=== PATIENT | female | born 1955 | race Caucasian/White ===

== ENCOUNTER → 2022-06-30 | Outpatient (REF) | payer MEDICARE, SELFPAY ==
[2022-06-30 08:21] LABS: Hematocrit 41.5 % (37-47); Hemoglobin 13.7 g/dL (12.0-15.0); Platelet Count 205 K/mm3 (150-450); RBC Distribution Width CV 12.6 % (11.6-14.6); RBC Distribution Width SD 44.7 fl (35.1-43.9); Red Blood Count 4.28 M/mm3 (4.2-5.4); White Blood Count 5.2 K/mm3 (4.4-11.0)
[2022-06-30 08:32] LABS: ALB/GLOB Ratio 1.1 RATIO (0.9-2.4); AST(SGOT) 14 U/L (15-37); Alanine Aminotransfer ALT/SGPT 24 U/L (13-56); Albumin, Serum 2.9 g/dL (3.2-5.0); Alkaline Phosphatase 64 U/L (45-117); Anion Gap 5 (5-15); BUN 17 mg/dL (7-18); BUN/Creat Ratio 24.2 RATIO (10-20); Calcium,Total 8.2 mg/dL (8.5-10.1); Chloride 113 mmol/L (98-107); EST Glomerular Filtration Rate 88 mL/min (>60); Est Glom Filt Rate - Afr Amer 107 mL/min (>60); Globulin 2.7 g/dL (2.2-4.2); Glucose 96 mg/dL (74-106); Potassium 3.9 mmol/L (3.5-5.1); Protein, Total 5.6 g/dL (6.4-8.2); Sodium Level 144 mmol/L (136-145)
[2022-06-30 08:53] LABS: Hemoglobin A1c 5.2 % (3.8-5.6)
== END ==
PROVIDERS: Referring Provider Family Medicine; Visit Provider Family Medicine
DX: E11.9 Type 2 diabetes mellitus without complications (principal); I10 Essential (primary) hypertension
CPT/HCPCS: 36415; 80053; 83036; 85027

== ENCOUNTER → 2022-07-11 | Outpatient (REF) | payer MEDICARE, SELFPAY ==
[2022-07-11 09:05] LABS: Hematocrit 42.2 % (37-47); Hemoglobin 13.9 g/dL (12.0-15.0); Mean Corp Hgb Conc 32.9 g/dL (32-36); Mean Corpuscular Hgb 31.7 pg (27.0-32.0); Mean Corpuscular Volume 96.3 fL (81-99); Platelet Count 194 K/mm3 (150-450); RBC Distribution Width CV 12.1 % (11.6-14.6); RBC Distribution Width SD 43.6 fl (35.1-43.9); Red Blood Count 4.38 M/mm3 (4.2-5.4); White Blood Count 4.6 K/mm3 (4.4-11.0)
[2022-07-11 09:23] LABS: Valproic Acid (Depakene) Level 29 ug/mL (50-100)
[2022-07-11 09:35] LABS: ALB/GLOB Ratio 0.9 RATIO (0.9-2.4); AST(SGOT) 12 U/L (15-37); Alanine Aminotransfer ALT/SGPT 23 U/L (13-56); Albumin, Serum 2.8 g/dL (3.2-5.0); Alkaline Phosphatase 77 U/L (45-117); Anion Gap 4 (5-15); BUN 17 mg/dL (7-18); Calcium,Total 8.5 mg/dL (8.5-10.1); Chloride 110 mmol/L (98-107); Creatinine, Serum 0.74 mg/dL (0.55-1.02); EST Glomerular Filtration Rate 83 mL/min (>60); Est Glom Filt Rate - Afr Amer 101 mL/min (>60); Glucose 98 mg/dL (74-106); Potassium 4.2 mmol/L (3.5-5.1); Protein, Total 5.8 g/dL (6.4-8.2); Sodium Level 142 mmol/L (136-145)
== END ==
DX: F39 Unspecified mood [affective] disorder (principal); F41.9 Anxiety disorder, unspecified; G93.1 Anoxic brain damage, not elsewhere classified; I10 Essential (primary) hypertension
CPT/HCPCS: 36415; 80053; 80164; 85027

== ENCOUNTER → 2022-10-30 | Outpatient (REF) | payer MEDICARE, SELFPAY ==
[2022-10-30 09:11] LABS: Hematocrit 40.9 % (37-47); Hemoglobin 13.4 g/dL (12.0-15.0); Mean Corp Hgb Conc 32.8 g/dL (32-36); Mean Corpuscular Hgb 31.8 pg (27.0-32.0); Mean Corpuscular Volume 97.1 fL (81-99); Mean Platelet Vol. 10.2 fl (6.2-12.0); Platelet Count 171 K/mm3 (150-450); RBC Distribution Width CV 12.6 % (11.6-14.6); RBC Distribution Width SD 45.2 fl (35.1-43.9); Red Blood Count 4.21 M/mm3 (4.2-5.4); White Blood Count 3.8 K/mm3 (4.4-11.0)
[2022-10-30 09:22] LABS: Valproic Acid (Depakene) Level 48 ug/mL (50-100)
[2022-10-30 09:29] LABS: ALB/GLOB Ratio 1.1 RATIO (0.9-2.4); AST(SGOT) 6 U/L (15-37); Alanine Aminotransfer ALT/SGPT 17 U/L (13-56); Albumin, Serum 2.9 g/dL (3.2-5.0); Alkaline Phosphatase 56 U/L (45-117); Anion Gap 6 (5-15); BUN 24 mg/dL (7-18); BUN/Creat Ratio 37.7 RATIO (10-20); Calcium,Total 8.4 mg/dL (8.5-10.1); Chloride 110 mmol/L (98-107); Creatinine, Serum 0.64 mg/dL (0.55-1.02); EST Glomerular Filtration Rate 99 mL/min (>60); Est Glom Filt Rate - Afr Amer 119 mL/min (>60); Globulin 2.7 g/dL (2.2-4.2); Glucose 92 mg/dL (74-106); Protein, Total 5.6 g/dL (6.4-8.2); Sodium Level 143 mmol/L (136-145)
== END ==
DX: F39 Unspecified mood [affective] disorder (principal); Z79.899 Other long term (current) drug therapy
CPT/HCPCS: 36415; 80053; 80164; 85027

== ENCOUNTER → 2022-12-30 | Outpatient (REF) | payer MEDICARE, SELFPAY ==
[2022-12-30 08:14] LABS: Hematocrit 42.3 % (37-47); Hemoglobin 13.8 g/dL (12.0-15.0); Mean Corp Hgb Conc 32.6 g/dL (32-36); Mean Corpuscular Hgb 32.8 pg (27.0-32.0); Mean Corpuscular Volume 100.5 fL (81-99); Mean Platelet Vol. 9.9 fl (6.2-12.0); Platelet Count 191 K/mm3 (150-450); RBC Distribution Width CV 12.6 % (11.6-14.6); RBC Distribution Width SD 46.8 fl (35.1-43.9); Red Blood Count 4.21 M/mm3 (4.2-5.4); White Blood Count 4.6 K/mm3 (4.4-11.0)
[2022-12-30 08:45] LABS: AST(SGOT) 8 U/L (15-37); Alanine Aminotransfer ALT/SGPT 14 U/L (13-56); Albumin, Serum 2.7 g/dL (3.2-5.0); Alkaline Phosphatase 57 U/L (45-117); Anion Gap 7 (5-15); BUN 28 mg/dL (7-18); BUN/Creat Ratio 41.5 RATIO (10-20); Calcium,Total 8.7 mg/dL (8.5-10.1); Chloride 112 mmol/L (98-107); Creatinine, Serum 0.67 mg/dL (0.55-1.02); EST Glomerular Filtration Rate 92 mL/min (>60); Est Glom Filt Rate - Afr Amer 112 mL/min (>60); Globulin 2.7 g/dL (2.2-4.2); Glucose 89 mg/dL (74-106); Protein, Total 5.4 g/dL (6.4-8.2); Sodium Level 146 mmol/L (136-145)
== END ==
PROVIDERS: Visit Provider Family Medicine
DX: G93.1 Anoxic brain damage, not elsewhere classified (principal); E11.9 Type 2 diabetes mellitus without complications; I10 Essential (primary) hypertension; Z79.899 Other long term (current) drug therapy
CPT/HCPCS: 36415; 80053; 83036; 85027

== ENCOUNTER → 2023-06-30 | Outpatient (REF) | payer MEDICARE, MEDICAID, SELFPAY ==
[2023-06-30 08:19] LABS: Hematocrit 41.4 % (37-47); Hemoglobin 13.4 g/dL (12.0-15.0); Mean Corp Hgb Conc 32.4 g/dL (32-36); Mean Corpuscular Hgb 32.2 pg (27.0-32.0); Mean Corpuscular Volume 99.5 fL (81-99); Mean Platelet Vol. 10.4 fl (6.2-12.0); Platelet Count 170 K/mm3 (150-450); RBC Distribution Width CV 12.5 % (11.6-14.6); RBC Distribution Width SD 45.8 fl (35.1-43.9); Red Blood Count 4.16 M/mm3 (4.2-5.4); White Blood Count 4.2 K/mm3 (4.4-11.0)
[2023-06-30 08:33] LABS: ALB/GLOB Ratio 0.9 RATIO (0.9-2.4); AST(SGOT) 8 U/L (15-37); Alanine Aminotransfer ALT/SGPT 15 U/L (13-56); Albumin, Serum 2.5 g/dL (3.2-5.0); Alkaline Phosphatase 52 U/L (45-117); Anion Gap 4 (5-15); BUN 18 mg/dL (7-18); BUN/Creat Ratio 27.8 RATIO (10-20); Calcium,Total 8.3 mg/dL (8.5-10.1); Chloride 111 mmol/L (98-107); Creatinine, Serum 0.65 mg/dL (0.55-1.02); EST Glomerular Filtration Rate 97 mL/min (>60); Est Glom Filt Rate - Afr Amer 117 mL/min (>60); Globulin 2.7 g/dL (2.2-4.2); Glucose 95 mg/dL (74-106); Potassium 4.1 mmol/L (3.5-5.1); Protein, Total 5.2 g/dL (6.4-8.2); Sodium Level 143 mmol/L (136-145)
== END ==
PROVIDERS: Visit Provider Family Medicine
DX: I10 Essential (primary) hypertension (principal); G93.1 Anoxic brain damage, not elsewhere classified; E11.9 Type 2 diabetes mellitus without complications
CPT/HCPCS: 36415; 80053; 83036; 85027

== ENCOUNTER → 2023-08-10 | Outpatient (REF) | payer MEDICARE, MEDICAID, SELFPAY ==
[2023-08-10 08:35] LABS: Hematocrit 41.6 % (37-47); Hemoglobin 13.6 g/dL (12.0-15.0); Mean Corp Hgb Conc 32.7 g/dL (32-36); Mean Corpuscular Hgb 32.3 pg (27.0-32.0); Mean Corpuscular Volume 98.8 fL (81-99); Mean Platelet Vol. 10.1 fl (6.2-12.0); Platelet Count 177 K/mm3 (150-450); RBC Distribution Width CV 12.7 % (11.6-14.6); RBC Distribution Width SD 45.8 fl (35.1-43.9); Red Blood Count 4.21 M/mm3 (4.2-5.4)
[2023-08-10 08:58] LABS: Valproic Acid (Depakene) Level 49 ug/mL (50-100)
== END ==
PROVIDERS: Visit Provider Family Medicine
DX: Z79.899 Other long term (current) drug therapy (principal)
CPT/HCPCS: 36415; 80164; 85027; 85049

== ENCOUNTER 2023-11-10 19:38 | Emergency (ER) | payer MEDICARE, SELFPAY ==
[2023-11-10 19:39] VITALS: BP 155/91; PULSE 77; RESP 16; TEMP 36.3; O2SAT 97
--- NOTE | 2023-11-10 22:19 | EDS_ITS ---
HPI History of Present Illness Chief Complaint: Complaint Informant: family Onset/Context/Timing Onset: Today Context: Sudden Onset Timing: Continuous Quality: Red blood Location: Urine Worsened by: Nothing Relieved by: Nothing Narrative Narrative: Patient presents with hematuria that began today. long-term staff noted some red blood in her urine today. Patient lives in extended-care facility and is incontinent usually. long-term staff noted some blood in her diaper today. Family denies any fevers or chills. Family denies any nausea or vomiting. Family states patient does have a history of prior urinary tract infections. Patient is a poor informant. [facility] Medical History (Updated 11/11/23 @ 01:[address] Sidney Quezada, DO) TBI (traumatic brain injury) Home Medications cephalexin 500 mg capsule 500 mg PO Q6 #20 CAPSULES 11/11/23 [Rx Last Taken Unknown] Social History Smoking Status: Unknown if ever smoked ROS ROS ED Review of Systems ROS Unobtainable: due to mental condition Constitutional Constitutional ED: Denies chills or fever(s) Respiratory/Chest Respiratory/Chest: Denies cough or dyspnea Gastrointestinal Gastrointestinal: Denies nausea or vomiting Genitourinary Genitourinary ED: Reports hematuria Integumentary Denies rash Allergic/Immunologic Allergic/Immunologic ED: Denies urticaria EXAM Physical Exam Const Vital Signs: 11/10/23 19:39 11/10/23 23:23 Temperature 97.4 F L 96.3 F L Temperature Source Temporal Axillary Pulse Rate 77 70 Respiratory Rate 16 16 Blood Pressure 155/91 H 159/88 H Blood Pressure Mean 112 111 Pulse Ox 97 91 Oxygen Delivery Method Room Air Positive well nourished and well developed General Appearance ED: well developed and NAD HEENT Reports moist mucous membranes Neck supple and no JVD Resp normal respiratory effort and clear to auscultation bilaterally Cardio regular rate and regular rhythm GI non-tender and non-distended Palpation: soft Neuro CN's II-XII intact bilaterally Sensorium / Orientation: alert Skin no rashes or lesions noted MDM MDM MDM Narrative Medical decision making narrative: Differential diagnosis includes urinary tract infection, pelvic mass, bladder mass, coagulopathy, anemia, and kidney injury. CBC will be obtained to assess for leukocytosis and anemia. Basic metabolic profile will be obtained to assess for electrolyte abnormality and renal function. Urinalysis will be obtained to assess for urinary tract infection and hematuria. CT scan of the abdomen pelvis will be obtained to assess for ureteral calculus, bladder mass and pelvic mass. Lab Data Attestation: I reviewed the patient's lab results. Lab results narrative: CBC was reviewed and was within normal limits. Basic metabolic profile was reviewed. BUN was slightly elevated at 30. Creatinine was normal. Remainder is within normal limits. Urinalysis was reviewed. There were 50-100 red blood cells and 5-10 white blood cells seen. Occult blood was 250. Labs: Laboratory Results - last 24 hr 11/10/23 11/10/23 22:50 22:55 WBC 8.5 RBC 4.66 Hgb 14.6 Hct 44.7 MCV 95.9 MCH 31.3 MCHC 32.7 RDW Std Deviation 43.8 RDW Coeff of Ronna 12.4 Plt Count 181 MPV 9.5 Immature Gran % (Auto) 0.400 Neut % (Auto) 60.8 Lymph % (Auto) 26.8 Shannon % (Auto) 10.2 H Eos % (Auto) 1.3 Baso % (Auto) 0.5 Absolute Neuts (auto) 5.2 Absolute Lymphs (auto) 2.28 Nucleated RBC % 0 Sodium 144 Potassium 4.0 Chloride 112 H Carbon Dioxide 28.0 Anion Gap 4 L BUN 30 H Creatinine 0.74 Est GFR (MDRD) Af Amer 99 Est GFR (MDRD) Non-Af 82 BUN/Creatinine Ratio 40.3 H Glucose 113 H Calcium 8.7 Urine Color Red Urine Clarity Cloudy Urine pH 5.0 Ur Specific [place] 1.020 Urine Protein 500 H Urine Glucose (UA) Normal Urine Ketones 5 H Urine Occult Blood 250 H Urine Nitrite Negative Urine Bilirubin Negative Urine Urobilinogen Normal Ur Leukocyte Esterase Negative Urine RBC 50-100 SEEN Urine WBC 5-10 SEEN Ur Squamous Epith Cells 0 SEEN Urine Bacteria 0 SEEN Urine Mucus 0 SEEN Radiography Diagnostic Testing: Clinical Impression(s) from Imaging Studies Abdomen/Pelvis CT 11/10/23 22:26 IMPRESSION: 1. 4 mm calyceal calculus at the posterior aspect of the left kidney, nonobstructing. 2. Possible cystitis. Correlate with urinalysis. Electronically Signed: Ariel Beltran MD at 0:51 EST , CT scan of the abdomen pelvis was obtained. There is evidence of cystitis. There is also a 4 mm calculus in the posterior aspect of the left kidney which is nonobstructing. There is no other abnormality noted. There are no masses noted. This was interpreted by the radiologist and was also independently reviewed by myself. Treatment and Re-Evaluation :: Patient and family were advised of the findings. Patient was given a dose of Rocephin here. Patient will be given a prescription for Keflex. Patient will be instructed to follow-up with her primary care physician in 3 to 5 days. Patient will be discharged back to extended-care facility. Patient and family understood and were agreeable with the plan. All questions were answered. Discharge Plan Triage Chief Complaint: Complaint ED Provider: Sidney Quezada Dx/Rx/DC Orders Clinical Impression: Urinary tract infection, Hemorrhagic cystitis Instructions: ED Cystitis Female Adult Prescriptions: New cephalexin [cephalexin] 500 mg capsule 500 mg PO Q6 Qty: 20 0RF Primary Care Provider: Saray Espinosa Referrals: Saray Espinosa MD [Primary Care Provider] - 3-5 Days Disposition Disposition: Home, Self Care
--- NOTE | 2023-11-10 22:26 | CT_ITS ---
EXAM: CT ABDOMEN AND PELVIS WITHOUT INTRAVENOUS CONTRAST CLINICAL INDICATION: Pain TECHNIQUE: Helically acquired images were obtained of the abdomen and pelvis without intravenous contrast. CTDIvol = ( 16.58 ) mGy, DLP = ( 824.19 ) mGycm This CT exam was performed using one or more of the following dose reduction techniques: automated exposure control, adjustment of the mA and/or kV according to patient size, and/or use of iterative reconstruction technique. COMPARISON: No relevant prior studies available. FINDINGS: LOWER THORAX: Moderate pericardial effusion. Small left pleural effusion with adjacent passive atelectasis. ABDOMEN: LIVER: Unremarkable. Homogeneous. GALLBLADDER AND BILE DUCTS: Unremarkable. No calcified gallstones. No gallbladder distention or wall edema. No intra- or extrahepatic biliary ductal dilation. PANCREAS: Unremarkable. No focal cystic mass. SPLEEN: Unremarkable. Normal size without focal cystic or solid mass. ADRENALS: Unremarkable. No nodules. KIDNEYS AND URETERS: 4 mm calyceal calculus at the posterior aspect of the left kidney, nonobstructing. Question presence of small renal sinus region cysts bilaterally. Normal renal size and position. STOMACH AND BOWEL: Right inguinal hernia containing small amount of fluid density. No bowel herniation. No stomach or bowel distention. No focal inflammatory change. PELVIS: APPENDIX: No evidence of acute appendicitis. BLADDER: Decompressed bladder with adjacent stranding. REPRODUCTIVE: Unremarkable as visualized. No mass. ABDOMEN and PELVIS: INTRAPERITONEAL SPACE: Unremarkable. No ascites or other fluid collection. No free air. BONES/JOINTS: Degenerative changes of the thoracolumbar spine. No suspicious lytic or blastic abnormality. SOFT TISSUES: See above. VASCULATURE: Unremarkable. Abdominal aorta is non-dilated. LYMPH NODES: Unremarkable. No enlarged lymph nodes. CT/Abdomen/Pelvis without Cont IMPRESSION: 1. 4 mm calyceal calculus at the posterior aspect of the left kidney, nonobstructing. 2. Possible cystitis. Correlate with urinalysis. Electronically Signed: Ariel Beltran MD at 0:51 EST ,
[2023-11-10 22:57] LABS: Bacteria 0 SEEN /hpf (None Seen); Mucous, Urine 0 SEEN /hpf (<or=2+); Squamous Epithelial Cells - UA 0 SEEN /hpf (5-10)
[2023-11-10 22:59] LABS: Absolute Lymphocyte Count 2.28 X10^3/uL (0.83-4.51); Absolute Neutrophil Count 5.2 X10^3/uL (2.0-7.7); Basophil# 0.04 X10^3/uL; Basophil% 0.5 % (0-1); Eosinophil# 0.11 X10^3/uL; Eosinophils% 1.3 % (0-5); Hematocrit 44.7 % (37-47); Hemoglobin 14.6 g/dL (12.0-15.0); Lymphocyte # 2.28 X10^3/ul (0.83-4.51); Lymphocyte % 26.8 % (19-41); Mean Corp Hgb Conc 32.7 g/dL (32-36); Mean Corpuscular Hgb 31.3 pg (27.0-32.0); Mean Corpuscular Volume 95.9 fL (81-99); Mean Platelet Vol. 9.5 fl (6.2-12.0); Monocyte# 0.87 X10^3/uL; Monocyte% 10.2 % (0-10); NRBC Flagged by Analyzer 0 % (0-5); Neutrophil # 5.19 X10^3/uL (2.7-7.7); Neutrophil % 60.8 % (47-70); Platelet Count 181 K/mm3 (150-450); RBC Distribution Width CV 12.4 % (11.6-14.6); RBC Distribution Width SD 43.8 fl (35.1-43.9); Red Blood Count 4.66 M/mm3 (4.2-5.4); White Blood Count 8.5 K/mm3 (4.4-11.0)
[2023-11-10 23:04] LABS: Color, Urine Red (Yellow); Glucose, Dipstick Normal (Normal); Ketone-Dipstick 5 mg/dl (Negative); Leukocyte Esterase-Dipstick Negative /ul (Negative); Nitrite-Dipstick Negative (Negative); Occult Blood-Urine 250 /ul (Negative); Protein-Dipstick 500 mg/dl (Negative); Urine Bilirubin Dipstick Negative (Negative); Urine Clarity Cloudy (Clear); Urine Urobilinogen Normal (Normal)
[2023-11-10 23:14] LABS: Anion Gap 4 (5-15); BUN 30 mg/dL (7-18); BUN/Creat Ratio 40.3 RATIO (10-20); Calcium,Total 8.7 mg/dL (8.5-10.1); Chloride 112 mmol/L (98-107); Creatinine, Serum 0.74 mg/dL (0.55-1.02); EST Glomerular Filtration Rate 82 mL/min (>60); Est Glom Filt Rate - Afr Amer 99 mL/min (>60); Glucose 113 mg/dL (74-106); Sodium Level 144 mmol/L (136-145)
[2023-11-10 23:23] VITALS: BP 159/88; PULSE 70; RESP 16; TEMP 35.7; O2SAT 91
[2023-11-10 23:56] LABS: Red Blood Cells-Urine 50-100 SEEN /hpf (0-5); White Blood Cells 5-10 SEEN /hpf (0-5)
[2023-11-11] MEDS: Ceftriaxone 1 GM/50 ML BAG IV (01:34)
[2023-11-11 01:38] VITALS: PULSE 75; RESP 17; O2SAT 97
--- OUTSIDE RECORDS SUMMARY | 2023-11-11 21:33 | XMS RPT_ITS | CCD ---
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 Name Role Phone TABET, SAE Unavailable Unavailable MICHELLE RENNER Unavailable Unavailable PHYSICIAN, NONE Unavailable Unavailable REFERRING, PHY WO ID Unavailable Unavailable ALHATEM, JEFF Unavailable Unavailable PHYSICIAN, NONE Unavailable Unavailable REFERRING, PHY WO ID Unavailable Unavailable PHYSICIAN, NONE Unavailable Unavailable Problems Problem Classification Problem Date Documented Da te Episodic/Chronic Intracranial injury (1 source) 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 Unclassified (1 source) Unknown / UNK(Unknown) Onset: 05-25-2017 Results Test Name Value Interpretation Reference Range Facil ity Encounters Encounter Date Encounter Type Care Provider Facility Start: 05-25-2017 Ambulatory SAE TABET Facili ty:[facility] [place] Start: 05-22-2017 Ambulatory PHY WO ID REFERRING Fac ility:[facility] Payers Date Payer Category Payer Medicaid [id number] Summary Purpose Family History No Family History Records FoundNo Family History Records Found Advance Directives No Advanced Directives Records FoundNo Advanced Directives Records Found Additional Source Comments INFORMATION SOURCE (unrecogn ized section and content) DATE CREATED AUTHOR AUTHOR'S ORGANIZ ATION 12/14/2020 [facility] ([place]) FOR RECORDS PERTAINING TO PATIENTS WHO ARE OR HAVE BEEN ENROLLED IN A CHEMICAL DEPENDENCY/SUBSTANCEABUSE PROGRAM, SOME INFORMATION MAY BE OMITTED. This clinical summary was aggregated from multiple sources. Caution should be exercised in using it in the provision of clinical care. This summary normalizes information from multiple sources, and as a consequence, information in this document may materially change the coding, format and clinical context of patient data. In addition, data may be omitted in some cases. CLINICAL DECISIONS SHOULD BE BASED ON THE PRIMARY CLINICAL RECORDS. [facility]. provides no warranty or guarantee of the accuracy or completeness of information in this document.
== END 2023-11-11 02:33 | disposition home or self-care (01) ==
PROVIDERS: Emergency Provider Emergency Medicine; PCP Family Medicine; Visit Provider Emergency Medicine
DX: N30.90 Cystitis, unspecified without hematuria (principal); R31.9 Hematuria, unspecified; N20.0 Calculus of kidney
CPT/HCPCS: 74176; 80048; 81001; 85025; 87086; 87088; 96365; 99284; J7050; P9612; A4216

== ENCOUNTER → 2023-12-29 | Outpatient (REF) | payer MEDICARE, MEDICAID, SELFPAY ==
--- OUTSIDE RECORDS SUMMARY | 2023-12-29 05:26 | XMS RPT_ITS | CCD ---
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 Name Role Phone TABET, SAE Unavailable Unavailable [...] Facility Start: 05-25-2017 Ambulatory SAE TABET Facili ty:[facility] Start: 05-22-2017 Ambulatory PHY WO ID REFERRING Fac ility:[facility] Payers Date Payer Category Payer Medicaid [id number] Summary Purpose Family History No Family History Records FoundNo Family History Records Found Advance Directives No Advanced Directives Records FoundNo Advanced Directives Records Found Additional Source Comments INFORMATION SOURCE (unrecogn ized section and content) DATE CREATED AUTHOR AUTHOR'S ORGANIZ ATION 12/14/2020 [facility] ([place]) FOR RECORDS PERTAINING TO [...] BE BASED ON THE PRIMARY CLINICAL RECORDS. [employer] [facility]. provides no warranty or guarantee of the accuracy or completeness of information in this document.
[2023-12-29 09:17] LABS: Absolute Lymphocyte Count 2.46 X10^3/uL (0.83-4.51); Basophil# 0.05 X10^3/uL; Eosinophil# 0.18 X10^3/uL; Eosinophils% 3.4 % (0-5); Hematocrit 41.5 % (37-47); Hemoglobin 13.5 g/dL (12.0-15.0); Lymphocyte # 2.46 X10^3/ul (0.83-4.51); Lymphocyte % 47.1 % (19-41); Mean Corp Hgb Conc 32.5 g/dL (32-36); Mean Corpuscular Hgb 31.3 pg (27.0-32.0); Mean Corpuscular Volume 96.3 fL (81-99); Mean Platelet Vol. 9.8 fl (6.2-12.0); Monocyte# 0.54 X10^3/uL; Monocyte% 10.3 % (0-10); NRBC Flagged by Analyzer 0 % (0-5); Neutrophil # 1.96 X10^3/uL (2.7-7.7); Neutrophil % 37.6 % (47-70); Platelet Count 181 K/mm3 (150-450); RBC Distribution Width CV 12.6 % (11.6-14.6); RBC Distribution Width SD 45.1 fl (35.1-43.9); Red Blood Count 4.31 M/mm3 (4.2-5.4); White Blood Count 5.2 K/mm3 (4.4-11.0)
[2023-12-29 10:07] LABS: AST(SGOT) 10 U/L (15-37); Alanine Aminotransfer ALT/SGPT 12 U/L (13-56); Albumin, Serum 2.7 g/dL (3.2-5.0); Alkaline Phosphatase 50 U/L (45-117); Anion Gap 6 (5-15); BUN 24 mg/dL (7-18); BUN/Creat Ratio 33.3 RATIO (10-20); Calcium,Total 8.5 mg/dL (8.5-10.1); Chloride 114 mmol/L (98-107); Creatinine, Serum 0.72 mg/dL (0.55-1.02); EST Glomerular Filtration Rate 85 mL/min (>60); Est Glom Filt Rate - Afr Amer 103 mL/min (>60); Globulin 2.6 g/dL (2.2-4.2); Glucose 94 mg/dL (74-106); Potassium 3.9 mmol/L (3.5-5.1); Protein, Total 5.3 g/dL (6.4-8.2); Sodium Level 146 mmol/L (136-145)
== END ==
PROVIDERS: PCP Family Medicine; Visit Provider Family Medicine
DX: E11.9 Type 2 diabetes mellitus without complications (principal); G93.1 Anoxic brain damage, not elsewhere classified; I10 Essential (primary) hypertension; Z79.899 Other long term (current) drug therapy
CPT/HCPCS: 36415; 80053; 83036; 85025

== ENCOUNTER → 2024-01-11 | Outpatient (REF) | payer MEDICARE, MEDICAID, SELFPAY ==
[2024-01-11 09:14] LABS: Hematocrit 41.1 % (37-47); Hemoglobin 13.5 g/dL (12.0-15.0); Mean Corp Hgb Conc 32.8 g/dL (32-36); Mean Corpuscular Hgb 31.8 pg (27.0-32.0); Mean Corpuscular Volume 96.9 fL (81-99); Mean Platelet Vol. 10.1 fl (6.2-12.0); Platelet Count 180 K/mm3 (150-450); RBC Distribution Width SD 46.5 fl (35.1-43.9); Red Blood Count 4.24 M/mm3 (4.2-5.4); White Blood Count 5.2 K/mm3 (4.4-11.0)
[2024-01-11 09:51] LABS: Valproic Acid (Depakene) Level 54 ug/mL (50-100)
[2024-01-11 10:21] LABS: AST(SGOT) 9 U/L (15-37); Alanine Aminotransfer ALT/SGPT 12 U/L (13-56); Albumin, Serum 2.7 g/dL (3.2-5.0); Alkaline Phosphatase 56 U/L (45-117); Anion Gap 4 (5-15); BUN 20 mg/dL (7-18); BUN/Creat Ratio 34.4 RATIO (10-20); Calcium,Total 8.5 mg/dL (8.5-10.1); Chloride 117 mmol/L (98-107); Creatinine, Serum 0.58 mg/dL (0.55-1.02); EST Glomerular Filtration Rate 109 mL/min (>60); Est Glom Filt Rate - Afr Amer 132 mL/min (>60); Globulin 2.6 g/dL (2.2-4.2); Glucose 95 mg/dL (74-106); Potassium 3.7 mmol/L (3.5-5.1); Protein, Total 5.3 g/dL (6.4-8.2); Sodium Level 146 mmol/L (136-145)
== END ==
PROVIDERS: PCP Family Medicine; Visit Provider Family Medicine
DX: Z79.899 Other long term (current) drug therapy (principal)
CPT/HCPCS: 36415; 80053; 80164; 85027

== ENCOUNTER → 2024-04-09 | Outpatient (REF) | payer MEDICARE, SELFPAY ==
[2024-04-10 15:03] LABS: Color, Urine Yellow (Yellow); Glucose, Dipstick Normal (Normal); Ketone-Dipstick Negative (Negative); Leukocyte Esterase-Dipstick 100 /ul (Negative); Nitrite-Dipstick Negative (Negative); Occult Blood-Urine Negative /ul (Negative); Protein-Dipstick Negative (Negative); Urine Bilirubin Dipstick Negative (Negative); Urine Clarity Clear (Clear); Urine Urobilinogen Normal (Normal)
== END ==
PROVIDERS: PCP Family Medicine; Visit Provider Family Medicine
DX: N39.0 Urinary tract infection, site not specified (principal)
CPT/HCPCS: 81002; 87086; 87088

== ENCOUNTER → 2024-05-09 | Outpatient (REF) | payer MEDICARE, SELFPAY ==
[2024-05-09 09:00] LABS: Absolute Lymphocyte Count 2.18 X10^3/uL (0.83-4.51); Absolute Neutrophil Count 1.6 X10^3/uL (2.0-7.7); Basophil# 0.03 X10^3/uL; Basophil% 0.7 % (0-1); Eosinophil# 0.15 X10^3/uL; Eosinophils% 3.3 % (0-5); Hematocrit 40.5 % (37-47); Hemoglobin 13.4 g/dL (12.0-15.0); Lymphocyte # 2.18 X10^3/ul (0.83-4.51); Lymphocyte % 47.5 % (19-41); Mean Corp Hgb Conc 33.1 g/dL (32-36); Mean Corpuscular Hgb 32.3 pg (27.0-32.0); Mean Corpuscular Volume 97.6 fL (81-99); Mean Platelet Vol. 10.5 fl (6.2-12.0); Monocyte# 0.58 X10^3/uL; Monocyte% 12.6 % (0-10); NRBC Flagged by Analyzer 0 % (0-5); Neutrophil # 1.63 X10^3/uL (2.7-7.7); Neutrophil % 35.5 % (47-70); Platelet Count 157 K/mm3 (150-450); RBC Distribution Width CV 13.1 % (11.6-14.6); RBC Distribution Width SD 46.1 fl (35.1-43.9); Red Blood Count 4.15 M/mm3 (4.2-5.4); White Blood Count 4.6 K/mm3 (4.4-11.0)
[2024-05-09 09:44] LABS: Anion Gap 5 (5-15); BUN 24 mg/dL (7-18); BUN/Creat Ratio 36.3 RATIO (10-20); Calcium,Total 8.4 mg/dL (8.5-10.1); Chloride 112 mmol/L (98-107); Creatinine, Serum 0.66 mg/dL (0.55-1.02); EST Glomerular Filtration Rate 94 mL/min (>60); Est Glom Filt Rate - Afr Amer 114 mL/min (>60); Glucose 90 mg/dL (74-106); Potassium 3.8 mmol/L (3.5-5.1); Sodium Level 144 mmol/L (136-145)
[2024-05-09 09:54] LABS: Valproic Acid (Depakene) Level 67 ug/mL (50-100)
== END ==
PROVIDERS: PCP Family Medicine
DX: F39 Unspecified mood [affective] disorder (principal); G93.1 Anoxic brain damage, not elsewhere classified; Z79.899 Other long term (current) drug therapy
CPT/HCPCS: 36415; 80048; 80164; 85025